=== PATIENT | female | born 1970 | race Caucasian/White ===

== ENCOUNTER 2022-05-17 14:51 | Emergency (ER) | payer MEDICARE, OTHER ==
[2022-05-17 15:21] VITALS: BP 105/64; PULSE 78; RESP 18; TEMP 98; BMI 23.0
[2022-05-17] MEDS ORDERED: CYCLOBENZAPRINE HCL 10 MG TABLET (FP) PO ONE (17:38)
[2022-05-17] MEDS ORDERED: ACETAMINOPHEN 500 MG TABLET (FP) PO ONE (17:40)
[2022-05-17] MEDS ORDERED: ACETAMINOPHEN 500 MG TABLET (FP) ONE (17:44)
[2022-05-17] MEDS ORDERED: CYCLOBENZAPRINE HCL 10 MG TABLET (FP) ONE (17:44)
[2022-05-17 18:01] LABS: BASO % 0.6 % (0-2.0); EOS % 4.8 % (0-4.5); HEMATOCRIT 41.6 % (32.4-45.2); HEMOGLOBIN 13.8 GM/dL (10.7-15.3); LYMPH % 55.4 % (8-40); MCH 31.8 pg (25.7-33.7); MCHC 33.2 g/dl (32.0-36.0); MEAN CELL VOLUME 95.6 fl (80-96); MONO % 5.2 % (3.8-10.2); PLATELET COUNT 266 10^3/uL (134-434); RBC 4.34 M/mm3 (3.60-5.2); RDW 13.1 % (11.6-15.6); WHITE BLOOD COUNT 8.8 K/mm3 (4.0-10.0)
[2022-05-17 18:02] LABS: PH,URINE 6.5 (5.0-8.0); URINE APPEARANCE CLEAR; URINE BILIRUBIN NEGATIVE (NEGATIVE); URINE COLOR YELLOW; URINE GLUCOSE (UA) NEGATIVE (NEGATIVE); URINE KETONE NEGATIVE (NEGATIVE); URINE LEUK ESTERASE NEGATIVE (NEGATIVE); URINE NITRITE NEGATIVE (NEGATIVE); URINE PROTEIN NEGATIVE (NEGATIVE); URINE UROBILINOGEN 0.2 mg/dL (0.2-1.0)
[2022-05-17 18:27] LABS: CALCIUM 9.3 mg/dL (8.5-10.1)
[2022-05-17 18:28] LABS: BLOOD UREA NITROGEN 13.5 mg/dL (7-18)
[2022-05-17 18:31] LABS: CREATININE 0.7 mg/dL (0.55-1.3)
== END 2022-05-17 22:34 | disposition home or self-care (01) ==
LOC: JERFT 14:51
DX: M25.531 Pain in right wrist (principal); V49.9XXA Car occupant (driver) (passenger) injured in unspecified traffic accident, initial encounter
CPT/HCPCS: 36415; 73110-TC-RT-FY; 73130-TC-RT-FY; 74176-TC; 80048; 81003; 85025; 87086; 99285-25